=== PATIENT | male | born 1950 | race Caucasian/White ===

== ENCOUNTER → 2016-07-14 | Outpatient (CLI) | payer BC ==
[2016-07-14 13:26] LABS: BASOPHILS # (AUTO) 0.05 10*3/UL; BASOPHILS % (AUTO) 1.1 % (0-1); EOSINOPHILS # (AUTO) 0.13 10*3/UL; EOSINOPHILS % (AUTO) 2.9 % (0-8); HEMOGLOBIN 14.4 g/dL (14.0-18.0); LYMPHOCYTES # (AUTO) 1.53 10*3/uL; MEAN CORPUSCULAR HEMOGLOBIN 28.7 PG (27-31); MEAN CORPUSCULAR HGB CONC 32.7 g/dL (33-37); MEAN CORPUSCULAR VOLUME 87.8 FL (80-90); MEAN PLATELET VOLUME 10.5 FL (7.4-12.2); MONOCYTES # (AUTO) 0.65 10*3/UL (0.3-0.8); MONOCYTES % (AUTO) 14.6 % (5-15); NEUTROPHILS % (AUTO) 47.1 % (50-80); RED BLOOD COUNT 5.01 10^6/uL (4.70-6.10)
[2016-07-14 13:28] LABS: BLOOD UREA NITROGEN 19 mg/dL (7-22); BUN/CREATININE RATIO 23.75 (6-20); CALCIUM 9.3 mg/dL (8.7-10.7); CHOL/HDL RATIO 3.35 RATIO (0-4.0); EST GLOMERULAR FILTRATION > 60 (>60 ml/min/1.73m(2)); HDL CHOLESTEROL 45 mg/dL (40-150); SERUM ALBUMIN 4.2 g/dL (3.5-4.8); SERUM CHOLESTEROL 151 mg/dL (120-200)
[2016-07-14 13:34] LABS: PLATELET MORPHOLOGY COMMENT NORMAL MORPHOLOGY (NORM); RBC MORPHOLOGY COMMENT NORMAL MORPHOLOGY (NORM); WBC MORPHOLOGY COMMENT NORMAL MORPHOLOGY (NORM)
== END ==
LOC: LAB 09:56
DX: Z00.00 Encounter for general adult medical examination without abnormal findings (principal); N52.9 Male erectile dysfunction, unspecified
CPT/HCPCS: 80053; 80061; 84153; 84443; 85025

== ENCOUNTER → 2016-08-16 | Outpatient (CLI) | payer BC ==
[2016-08-16 17:42] LABS: CHOL/HDL RATIO 3.82 RATIO (0-4.0); LDL CHOLESTEROL,CALCULATED 97.2 mg/dL
== END ==
LOC: LAB 08:13
PROVIDERS: ATTEND Nurse Practitioner Family
DX: R74.0 Nonspecific elevation of levels of transaminase and lactic acid dehydrogenase [LDH] (principal)
CPT/HCPCS: 80061

== ENCOUNTER → 2016-08-25 | Outpatient (CLI) | payer BC ==
[2016-08-25 13:35] LABS: SERUM ALBUMIN 4.2 g/dL (3.5-4.8)
== END ==
LOC: LAB 08:07
PROVIDERS: ATTEND Nurse Practitioner Family
DX: R74.0 Nonspecific elevation of levels of transaminase and lactic acid dehydrogenase [LDH] (principal)
CPT/HCPCS: 80076

== ENCOUNTER 2019-05-07 05:44 | Inpatient (IN) ==
[2019-05-07] MEDS ORDERED: Vancomycin-PHA to Dose IV PRN ×2 (06:00→18:06)
[2019-05-07] MEDS ORDERED: Nasal Sanitizer POPSWAB ampule 3 AMP (Nozin) PREOP DOSE ENOS SCH (06:00)
[2019-05-07] MEDS ORDERED: ceFAZolin Inj 2gm (Premix) 2 GM/50 ML BAG IV ONE (06:00)
[2019-05-07] MEDS ORDERED: Lactated Ringers 1,000 ML PRIMARY IV ONE ×3 (06:00→07:08)
[2019-05-07] MEDS ORDERED: LIDOCAINE W/ SODIUM BICARB 0.5 ML SYR SUBD ONE (06:00)
[2019-05-07] MEDS ORDERED: Vancomycin 1.5 gm (Premix) 1.5 GM/300 ML PIGGYBACK IV ONE ×2 (06:00→06:07)
[2019-05-07] MEDS ORDERED: Clindamycin 900mg (Premix) 900 MG/50 ML BAG IV ONE ×2 (06:07→06:10)
[2019-05-07] MEDS ORDERED: LIDOCAINE W/ SODIUM BICARB 0.5 ML SYR ONE (06:07)
[2019-05-07 06:13] LABS: BILIRUBIN,URINE NEGATIVE (NEG); CLARITY,URINE CLEAR (CLEAR); COLOR,URINE YELLOW (Y); GLUCOSE, URINE (UA) NEGATIVE (NEG); OCCULT BLOOD,URINE NEGATIVE (NEG); PH,URINE 5.5 (5.0-8.5); PROTEIN,URINE NEGATIVE (NEG)
[2019-05-07 06:15] LABS: URINE SAMPLE TYPE CLEAN CATCH URINE
[2019-05-07] MEDS ORDERED: BUPivacaine Inj 0.25% PF - 10ml vial ONE ×2 (06:52→06:54)
[2019-05-07] MEDS ORDERED: BUPIVACAINE 0.25% W/ EPI - 10 ML VIAL ONE ×2 (06:52→06:54)
[2019-05-07] MEDS ORDERED: Sodium Chloride 0.9% vial 20 ML ONE ×3 (06:52→13:34)
[2019-05-07] MEDS ORDERED: BACITRACIN 50,000 UNIT VIAL IRRIG ONE ×5 (06:54→13:35)
[2019-05-07] MEDS ORDERED: BUPivacaine Liposome/PF (Exparel) Inj 20ml vial INFIL ONE (06:55)
[2019-05-07] MEDS ORDERED: fentaNYL Inj 250 MCG/5 ML VIAL ONE ×2 (07:00→09:47)
[2019-05-07] MEDS ORDERED: LIDOCAINE MPF 2% - 5 ML (20 MG/1 ML) ONE (07:01)
[2019-05-07] MEDS ORDERED: ONDANSETRON 4 MG/2 ML VIAL ONE (07:01)
[2019-05-07] MEDS ORDERED: KETOROLAC 30 MG/1 ML VIAL ONE (07:01)
[2019-05-07] MEDS ORDERED: PROPOFOL 10 MG/1 ML (200 MG/20 ML) VIAL IV ONE (07:01)
[2019-05-07] MEDS ORDERED: ROCURONIUM 10 MG/1 ML - 5 ML VIAL IVP ONE (07:02)
[2019-05-07] MEDS ORDERED: Gentamicin Inj 40 MG/ML VIAL ONE (07:08)
[2019-05-07] MEDS ORDERED: Sodium Chloride 0.9% vial 10 ML ONE ×4 (07:08→11:35)
[2019-05-07] MEDS ORDERED: Vancomycin Inj 1gm vial ONE ×2 (07:09→15:45)
[2019-05-07] MEDS ORDERED: LIDOCAINE HCL 2 % 10 ML JELLY URO-JECT TOPICAL ONE ×2 (07:29→08:41)
[2019-05-07] MEDS ORDERED: Hetastarch 6% + NS 500 ML IV ONE (11:33)
[2019-05-07] MEDS ORDERED: FUROSEMIDE 10 MG/1 ML - 4 ML ONE (14:25)
[2019-05-07] MEDS ORDERED: TRANEXAMIC ACID 1,000 MG / 10 ML VIAL ONE (14:27)
[2019-05-07] MEDS ORDERED: SUGAMMADEX SODIUM 200 MG/2 ML VIAL IV ONE (14:27)
[2019-05-07] MEDS ORDERED: DEXAMETHASONE PF 10 MG/1 ML VIAL ONE (14:27)
[2019-05-07] MEDS ORDERED: fentaNYL Inj 100 MCG/2 ML VIAL ONE (15:33)
[2019-05-07] MEDS ORDERED: Ondansetron ODT Tab 8 MG TAB PO PRN (16:50)
[2019-05-07] MEDS ORDERED: PROMETHAZINE 25 MG/1 ML VIAL IM PRN ×2 (16:50→18:06)
[2019-05-07] MEDS ORDERED: MORPHINE SULFATE 2 MG/1 ML IVP PRN (16:50)
[2019-05-07] MEDS ORDERED: fentaNYL Inj 100 MCG/2 ML VIAL IVP PRN (16:50)
[2019-05-07] MEDS ORDERED: Meperidine Inj 50 MG/ML CARPUJECT IVP PRN (16:50)
[2019-05-07] MEDS ORDERED: Metoclopramide Inj 10 MG/2 ML VIAL IVP PRN (16:50)
[2019-05-07] MEDS ORDERED: LIDOCAINE W/ SODIUM BICARB 0.5 ML SYR SUBD PRN (16:50)
[2019-05-07] MEDS ORDERED: ONDANSETRON 4 MG/2 ML VIAL IVP PRN ×2 (16:50→18:06)
[2019-05-07] MEDS ORDERED: Prochlorperazine Edisylate Inj 10mg/2ml vial IVP PRN ×2 (16:50→18:06)
[2019-05-07] MEDS ORDERED: Lactated Ringers 1,000 ML PRIMARY IV SCH (17:00)
[2019-05-07] MEDS: HYDROmorphone 2 MG/1 ML IVP PRN ×3 (17:05→17:30)
[2019-05-07] MEDS ORDERED: Ondansetron ODT Tab 4 MG TAB PO PRN (18:06)
[2019-05-07] MEDS ORDERED: DOCUSATE 100 MG CAPSULE PO PRN (18:06)
[2019-05-07] MEDS ORDERED: DIAZEPAM 10 MG/2 ML (5 MG/1 ML) CARPUJECT IVP PRN (18:06)
[2019-05-07] MEDS ORDERED: Fleet Enema 133ml RECTAL PRN (18:06)
[2019-05-07] MEDS ORDERED: MAGNESIUM 400 MG/5 ML - 30 ML (MILK OF MAGNESIA) PO PRN (18:06)
[2019-05-07] MEDS ORDERED: DIAZEPAM 10 MG TABLET PO PRN (18:06)
[2019-05-07] MEDS ORDERED: MAGNESIUM CITRATE 296 ML SOLUTION PO PRN (18:06)
[2019-05-07] MEDS ORDERED: BISACODYL 5 MG TABLET PO PRN (18:06)
[2019-05-07] MEDS ORDERED: Vancomycin 1.5 gm (Premix) 1.5 GM/300 ML PIGGYBACK IV SCH (19:00)
[2019-05-07] MEDS: Clindamycin 900mg (Premix) 900 MG/50 ML BAG IV SCH (19:01)
[2019-05-07] MEDS: oxyCODONE/APAP 10/325 Tab 1 EACH TAB PO PRN ×2 (19:24→23:11)
[2019-05-07] MEDS: DOXAZOSIN 2 MG TABLET PO SCH (20:51)
[2019-05-07] MEDS: OMEPRAZOLE 40 MG CAPSULE PO SCH (20:51)
[2019-05-07] MEDS: Vancomycin 1.5 gm (Premix) 1.5 GM/300 ML PIGGYBACK IV SCH (20:51)
[2019-05-07] MEDS: DULOXETINE HCL 40 MG PO SCH (21:16)
[2019-05-08] MEDS: Clindamycin 900mg (Premix) 900 MG/50 ML BAG IV SCH ×3 (03:12→18:48)
[2019-05-08] MEDS: oxyCODONE/APAP 7.5/325 Tab 1 TAB TAB PO PRN ×3 (04:18→19:53)
[2019-05-08 05:23] LABS: BLOOD UREA NITROGEN 15 mg/dL (7-22)
[2019-05-08 06:20] LABS: BASOPHILS # (AUTO) 0.02 10*3/UL; BASOPHILS % (AUTO) 0.3 % (0-1); EOSINOPHILS # (AUTO) 0 10*3/UL; EOSINOPHILS % (AUTO) 0 % (0-8); Hematocrit [HCT] 29.9 % (42.0-52.0); LYMPHOCYTES # (AUTO) 1.12 10*3/uL; MEAN CORPUSCULAR HGB CONC 33.4 g/dL (33-37); MEAN CORPUSCULAR VOLUME 89.3 FL (80-90); MEAN PLATELET VOLUME 10.4 FL (7.4-12.2); MONOCYTES # (AUTO) 0.98 10*3/UL (0.3-0.8); MONOCYTES % (AUTO) 14.8 % (5-15); RED BLOOD COUNT 3.35 10^6/uL (4.70-6.10)
[2019-05-08] MEDS ORDERED: diphenhydrAMINE 25 MG CAPSULE PO PRN (06:33)
[2019-05-08 06:35] LABS: PLATELET MORPHOLOGY COMMENT NORMAL MORPHOLOGY (NORM); RBC MORPHOLOGY COMMENT NORMAL MORPHOLOGY (NORM); WBC MORPHOLOGY COMMENT NORMAL MORPHOLOGY (NORM)
[2019-05-08] MEDS: oxyCODONE-ACETAMINOPHEN 5-325 TAB PO PRN ×2 (08:10→11:59)
[2019-05-08] MEDS: Vancomycin 1.5 gm (Premix) 1.5 GM/300 ML PIGGYBACK IV SCH ×2 (08:11→20:52)
[2019-05-08] MEDS: DULOXETINE HCL 40 MG PO SCH (20:50)
[2019-05-08] MEDS: DOXAZOSIN 2 MG TABLET PO SCH (20:50)
[2019-05-08] MEDS: OMEPRAZOLE 40 MG CAPSULE PO SCH (20:50)
[2019-05-08] MEDS ORDERED: Multivitamin Tab 1 TAB PO SCH (21:00)
[2019-05-09] MEDS: oxyCODONE/APAP 7.5/325 Tab 1 TAB TAB PO PRN ×3 (00:47→10:04)
[2019-05-09] MEDS: Clindamycin 900mg (Premix) 900 MG/50 ML BAG IV SCH ×2 (02:44→10:04)
[2019-05-09 07:34] VITALS: BP 106/61; RESP 16; TEMP 98.1; O2SAT 90
[2019-05-09] MEDS: Vancomycin 1.5 gm (Premix) 1.5 GM/300 ML PIGGYBACK IV SCH (08:11)
[2019-05-09] MEDS ORDERED: CYCLOBENZAPRINE 10 MG TABLET PO SCH (09:00)
== END 2019-05-09 12:34 | disposition home or self-care (01) | DRG 460 ==
LOC: OPS 05:44 → MED/SURG 17:58
PROVIDERS: ADMIT Neurological Surgery; ATTEND Neurological Surgery